=== PATIENT | male | born 1935 | race Caucasian/White ===

== ENCOUNTER 2017-07-06 15:14 | Observation (INO) | payer MEDICARE, OTHER ==
[~2017-07-06] VITALS: Ht 177.8 cm; Wt 75.0 kg
[~2017-07-06 15:14] MED LIST: AMLO5 PO; ASPI325T24 PO; ATEN1TAB73 PO; ATOR20TA PO; CALC750C PO; GABA300C3 PO; IRON27TA PO; OMEG306C PO; PROT40TA PO; REST30CA PO; VITA10002 PO; VITA500015 PO
--- NOTE | 2017-07-06 15:38 | PD ---
HPI Chief Complaint: chest pain Time Seen by Provider: 15:34 Travel History International Travel<30 days: No Contact w/Intl Traveler<30days: No Traveled to known affect area: No History of Present Illness HPI 82-year-old male came to the emergency room with history of sudden onset chest pain that was sharp in nature when he was watching television this afternoon. The pain was on the left side of the chest with no radiation and lasted for a few minutes followed by intense numbness of the upper part of his body in bilateral upper extremity. This scared the patient and he called EMS. By the time EMS arrived patient's pain and numbness was gone. He had taken one full strength aspirin this morning as part of his daily regimen. Patient does have coronary artery disease history. No loss of consciousness. No history of shortness of breath. Pain was sharp in nature and nonradiating. He is awake and answering questions appropriately. Vital signs are stable. Patient had 2 stents put in in 2003. Patient has not seen a bell cleaner in a while. He does not recall his last stress test. [facility] Past Medical History Narrative Medical List of his past medical, surgical, social and family history is reviewed from the nursing note. Hx Anticoagulant Therapy: Yes (asa 325mg) Autoimmune Disease: No Blood Disorders: No Anxiety: No Depression: No Heart Rhythm Problems: No Cancer: Yes (BCC; MELANOMA) Cardiovascular Problems: Yes (DC; HYPERCHOLESTEROLEMIA; HTN) High Cholesterol: Yes Chemotherapy: No Chest Pain: Yes Congestive Heart Failure: Yes Cerebrovascular Accident: Yes (HX CVA) Coronary Artery Disease: Yes Diabetes: No Diminished Hearing: Yes ([place] [facility] AIDS) Diverticulitis: Yes Endocrine: No Gastrointestinal Disorders: Yes GERD: Yes Genitourinary: Yes (CHRONIC KIDNEY DISEASE) Headaches: No Hiatal Hernia: Yes Hypertension: Yes Immune Disorder: No Implanted Vascular Access Dvce: Yes Insomnia: Yes Musculoskeletal: No Neurologic: Yes Psychiatric: No Reproductive: No Respiratory: No Myocardial Infarction: Yes Radiation Therapy: No Seizures: No Past Surgical History Abdominal Surgery: Yes (BOWEL RESECTION; R INGUINAL HERNIA REPAIR) AICD: No Appendectomy: Yes Body Medical Devices: CARDIAC STENTS Cardiac Surgery: Yes (CARDIAC STENTS) Cholecystectomy: Yes Coronary Stent: Yes (2007(X2)) Ear Surgery: No Endocrine Surgery: No Eye Surgery: No Genitourinary Surgery: Yes (GALL STONES) Gynecologic Surgery: No Oral Surgery: No Pacemaker: No Thoracic Surgery: Yes Other Surgery: Yes (L CAROTID ARTHEROTOMY; MULTIPLE SKIN CA EXCISIONS) Social History Alcohol Use: No Tobacco Use: No Substance Use: No Allergies-Medications (Allergen,Severity, Reaction): Coded Allergies: No Known Allergies (Verified , 10/04/15) Comments No known drug allergies Reported Meds & Prescriptions Reported Meds & Active Scripts Active Reported Melatonin 10 Mg-1 Mg Tab 10 Mg PO HS PRN Gabapentin 300 Mg Cap 300 Mg PO TID Atorvastatin (Atorvastatin Calcium) 20 Mg Tab 20 Mg PO HS Amlodipine (Amlodipine Besylate) 5 Mg Tab 5 Mg PO DAILY Ecotrin Regular Strength (Aspirin) 325 Mg Tabdr 325 Mg PO DAILY Protonix (Pantoprazole Sodium) 40 Mg Tab 40 Mg PO DAILY Trazodone (Trazodone HCl) 50 Mg Tab 50 Mg PO HS Narrative Medication List of his home medications reviewed from the nursing note. Review of Systems Except as stated in HPI: all other systems reviewed are Neg Cardiovascular: Positive: Chest Pain or Discomfort Physical Exam Narrative GENERAL: Awake, alert, anxious, elderly SKIN: Focused skin assessment warm/dry. HEAD: Atraumatic. Normocephalic. EYES: Pupils equal and round. No scleral icterus. No injection or drainage. ENT: No nasal bleeding or discharge. Mucous membranes pink and moist. NECK: Trachea midline. No JVD. CARDIOVASCULAR: Regular rate and rhythm. No murmur appreciated. RESPIRATORY: No accessory muscle use. Clear to auscultation. Breath sounds equal bilaterally. GASTROINTESTINAL: Abdomen soft, non-tender, nondistended. Hepatic and splenic margins not palpable. MUSCULOSKELETAL: No obvious deformities. No clubbing. No cyanosis. No edema. NEUROLOGICAL: Awake and alert. No obvious cranial nerve deficits. Motor grossly within normal limits. Normal speech. PSYCHIATRIC: Appropriate mood and affect; insight and judgment normal. Data Data Last Documented VS Vital Signs Date Time Temp Pulse Resp B/P (MAP) Pulse Ox O2 Delivery O2 Flow Rate FiO2 07/06/17 16:34 97 Room Air 07/06/17 16:34 18 07/06/17 15:57 67 07/06/17 15:56 98.2 Orders Orders Electrocardiogram (07/06/17 15:34) Basic Metabolic Panel (Bmp) (07/06/17 15:34) Ckmb (Isoenzyme) Profile (07/06/17 15:34) Complete Blood Count With Diff (07/06/17 15:34) Magnesium (Mg) (07/06/17 15:34) Prothrombin Time / Inr (Pt) (07/06/17 15:34) Act Partial Throm Time (Ptt) (07/06/17 15:34) Troponin I (07/06/17 15:34) Chest, Single Ap (07/06/17 15:34) Ecg Monitoring (07/06/17 15:34) Bilateral Bp Monitoring (07/06/17 15:34) Iv Access Insert/Monitor (07/06/17 15:34) Oximetry (07/06/17 15:34) Oxygen Administration (07/06/17 15:34) Sodium Chloride 0.9% Flush (Ns Flush) (07/06/17 15:45) Ct Brain W/O Iv Contrast(Rout) (07/06/17 ) Admit Order (Ed Use Only) (07/06/17 17:31) Place In Observation (07/06/17 17:32) Activity Bed Rest With Brp (07/06/17 17:32) Vital Signs (Adult) Q4H (07/06/17 17:32) Cardiac Rhythm .As Directed (07/06/17 17:32) Notify Dr: Other .PRN (07/06/17 17:32) Notify Parameters (07/06/17 17:32) Resp Oxygen Nasal Cannula (07/06/17 ) Ckmb (Isoenzyme) Profile (07/06/17 17:32) Ckmb (Isoenzyme) Profile (07/06/17 20:32) Troponin I (07/06/17 17:32) Troponin I (07/06/17 20:32) Electrocardiogram (07/06/17 17:32) Electrocardiogram (07/06/17 20:32) ^ Obtain (07/06/17 17:32) Sodium Chloride 0.9% Flush (Ns Flush) (07/06/17 17:45) Sodium Chloride 0.9% Flush (Ns Flush) (07/06/17 21:00) Acetaminophen (Tylenol) (07/06/17 17:45) Ondansetron Inj (Zofran Inj) (07/06/17 17:45) Nitroglycerin Sl (Nitrostat Sl) (07/06/17 17:45) Project Mgr / Telemetry [id number].[id number] (07/06/17 17:32) Labs Laboratory Tests Test 07/06/17 16:06 White Blood Count 5.0 TH/MM3 Red Blood Count 4.00 MIL/MM3 Hemoglobin 12.6 GM/DL Hematocrit 37.9 % Mean Corpuscular Volume 94.9 FL Mean Corpuscular Hemoglobin 31.5 PG Mean Corpuscular Hemoglobin Concent 33.2 % Red Cell Distribution Width 13.5 % Platelet Count 162 TH/MM3 Mean Platelet Volume 8.9 FL Neutrophils (%) (Auto) 66.0 % Lymphocytes (%) (Auto) 17.6 % Monocytes (%) (Auto) 13.9 % Eosinophils (%) (Auto) 1.8 % Basophils (%) (Auto) 0.7 % Neutrophils # (Auto) 3.3 TH/MM3 Lymphocytes # (Auto) 0.9 TH/MM3 Monocytes # (Auto) 0.7 TH/MM3 Eosinophils # (Auto) 0.1 TH/MM3 Basophils # (Auto) 0.0 TH/MM3 CBC Comment DIFF FINAL Differential Comment Prothrombin Time 10.4 SEC Prothromb Time International Ratio 1.0 RATIO Activated Partial Thromboplast Time 25.4 SEC Blood Urea Nitrogen 14 MG/DL Creatinine 1.25 MG/DL Random Glucose 123 MG/DL Calcium Level 8.3 MG/DL Magnesium Level 1.7 MG/DL Sodium Level 140 MEQ/L Potassium Level 4.5 MEQ/L Chloride Level 104 MEQ/L Carbon Dioxide Level 29.6 MEQ/L Anion Gap 6 MEQ/L Estimat Glomerular Filtration Rate 55 ML/MIN Total Creatine Kinase 60 U/L Troponin I LESS THAN 0.02 NG/ML MDM Medical Decision Making Medical Screen Exam Complete: Yes Emergency Medical Condition: Yes Medical Record Reviewed: Yes Interpretation(s) Twelve-lead EKG was reviewed by me. Normal sinus rhythm, left axis deviation, right bundle branch block. Heart rate of 66 bpm. Differential Diagnosis ACS, non-STEMI, nonspecific chest pain Narrative Course 5:42 PM given his past medical history and his age I would like to admit him to be ruled out for ACS and the chest pain center. I explained this to the patient and he understands. Blood test results of back and within acceptable limits. Head CT and chest x-rays negative. Procedures EKG Prior to Arrival: Yes Diagnosis Primary Impression: Chest pain Qualified Codes: R07.9 - Chest pain, unspecified Admitting Information Admitting Physician Requests: Observation Aneesh Mckinley MD Jul 06, 2017 15:38
[2017-07-06] MEDS ORDERED: SODIUM CHLORIDE 0.9% FLUSH 10 ML FLUSH IVF PRN (15:45)
[2017-07-06 15:56] VITALS: BP 186/75; PULSE 84; RESP 18; TEMP 98.2; O2SAT 96
[2017-07-06 16:34] VITALS: RESP 18; O2SAT 98
--- NOTE | 2017-07-06 16:34 | RADRPT ---
EXAM DATE/TIME: 07/06/2017 15:47 [facility] COMPARISON: No previous studies available for comparison. INDICATIONS : Chest pain and shortness of breath. MEDICAL HISTORY : Hypercholesterolemia. Hypertension CHF, Coronary artery disease, Heart attack. SURGICAL HISTORY : Coronary stents. ENCOUNTER: Initial ACUITY: 1 day PAIN SCORE: 3/10 LOCATION: Bilateral chest FINDINGS: A single view of the chest demonstrates the lungs to be symmetrically aerated without evidence of mas s, infiltrate or effusion. The cardiomediastinal contours are unremarkable. Osseous structures are intact. CONCLUSION: No acute disease. Raul Morgan MD on July 06, 2017 at 16:31 Board Certified Radiologist. This report was verified electronically.
[2017-07-06 16:37] LABS: AUTOMATED NEUTROPHIL # 3.3 TH/MM3 (1.8-7.7); BASOPHIL % 0.7 % (0.0-2.0); EOSINOPHIL # 0.1 TH/MM3 (0-0.4); EOSINOPHIL % 1.8 % (0.0-4.0); HEMATOCRIT 37.9 % (39.0-51.0); HEMOGLOBIN 12.6 GM/DL (13.0-17.0); LYMPH % 17.6 % (9.0-44.0); LYMPHOCYTE # 0.9 TH/MM3 (1.0-4.8); MEAN CELL VOLUME 94.9 FL (80.0-100.0); MEAN CORPUSCULAR HEMOGLOBIN 31.5 PG (27.0-34.0); MEAN CORPUSCULAR HGB CONC 33.2 % (32.0-36.0); MEAN PLATELET VOLUME 8.9 FL (7.0-11.0); MONO % 13.9 % (0.0-8.0); MONOCYTE # 0.7 TH/MM3 (0-0.9); PLATELET COUNT 162 TH/MM3 (150-450); RED CELL DISTRIBUTION WIDTH 13.5 % (11.6-17.2)
[2017-07-06] MEDS ORDERED: ASPI-146 PO (16:40)
[2017-07-06] MEDS ORDERED: GABA300C5 PO (16:40)
[2017-07-06] MEDS ORDERED: PROT40TA PO (16:40)
[2017-07-06] MEDS ORDERED: AMLO5TAB2 PO (16:40)
[2017-07-06] MEDS ORDERED: TRAZ50TA12 PO (16:40)
[2017-07-06] MEDS ORDERED: MELA1TAB18 PO (16:40)
[2017-07-06] MEDS ORDERED: ATOR20TA15 PO (16:40)
[2017-07-06 16:45] LABS: PROTHROMBIN TIME - PATIENT 10.4 SEC (9.8-11.6)
[2017-07-06 17:01] LABS: BICARBONATE 29.6 MEQ/L (21.0-32.0); BLOOD UREA NITROGEN 14 MG/DL (7-18); CALCIUM 8.3 MG/DL (8.5-10.1); CHLORIDE 104 MEQ/L (98-107); CREATININE 1.25 MG/DL (0.60-1.30); GLOMERULAR FILTRATION RATE 55 ML/MIN (>89); GLUCOSE,RANDOM 123 MG/DL (74-106); MAGNESIUM 1.7 MG/DL (1.5-2.5); SODIUM (NA) 140 MEQ/L (136-145); TROPONIN I LESS THAN 0.02 NG/ML (0.02-0.05)
--- NOTE | 2017-07-06 17:21 | RADRPT ---
EXAM DATE/TIME: 07/06/2017 16:01 [facility] COMPARISON: CT BRAIN W/O CONTRAST, March 31, 2011, 16:20. INDICATIONS : Patient complains of cheast pain. RADIATION DOSE: 56.35 CTDIvol (mGy) MEDICAL HISTORY : Cardiovascular disease. Hypertension. SURGICAL HISTORY : None. ENCOUNTER: Initial ACUITY: 1 day PAIN SCALE: 0/10 LOCATION: cranial TECHNIQUE: Multiple contiguous axial images were obtained of the head. Using automated exposure control and adj ustment of the mA and/or kV according to patient size, radiation dose was kept as low as reasonably a chievable to obtain optimal diagnostic quality images. DICOM format image data is available electro nically for review and comparison. FINDINGS: CEREBRUM: Stable small lacunar infarct in the right caudate head. Mild to moderate diffuse to t. The ventricles are normal for degree of atrophy. No evidence of midline shift, mass lesion, hemorrhage or acute in farction. No extra-axial fluid collections are seen. POSTERIOR FOSSA: The cerebellum and brainstem are intact. The 4th ventricle is midline. The cerebellopontine angle i s unremarkable. EXTRACRANIAL: The visualized portion of the orbits is intact. SKULL: The calvaria is intact. No evidence of skull fracture. CONCLUSION: 1. No acute intracranial abnormality or significant interval change. Sam Snow MD on July 06, 2017 at 17:17 Board Certified Radiologist. This report was verified electronically.
[2017-07-06] MEDS ORDERED: ACETAMINOPHEN 500 MG CPLT PO PRN (17:45)
[2017-07-06] MEDS ORDERED: SODIUM CHLORIDE 0.9% FLUSH 10 ML FLUSH IV FLUSH PRN (17:45)
[2017-07-06] MEDS ORDERED: NITROGLYCERIN 0.4 MG SL 25 TABS/BTL SL PRN (17:45)
[2017-07-06] MEDS ORDERED: ONDANSETRON HCL 4 MG/2 ML VIAL IV PUSH PRN (17:45)
[2017-07-06 18:55] VITALS: BP_SYST 137; BP_SYST 142; BP_DIAS 79; BP_DIAS 85; BP_DIAS 86; PULSE 82; PULSE 84; RESP 18; O2SAT 97
[2017-07-06 19:09] VITALS: BP 117/78; PULSE 78; RESP 18; O2SAT 99
[2017-07-06 19:46] LABS: TROPONIN I LESS THAN 0.02 NG/ML (0.02-0.05)
[2017-07-06 20:00] VITALS: O2SAT 96
[2017-07-06] MEDS: SODIUM CHLORIDE 0.9% FLUSH 10 ML FLUSH IV FLUSH SCH (21:00)
[2017-07-06 21:40] VITALS: BP 144/67; PULSE 64; RESP 16; TEMP 97.6; O2SAT 97
[2017-07-07] VITALS (8 sets, daily range): BP systolic 102–182; BP diastolic 57–74; PULSE 61–71; RESP 15–18; TEMP 97.5–98.3; O2SAT 93–97
[2017-07-07 00:44] LABS: TROPONIN I LESS THAN 0.02 NG/ML (0.02-0.05)
[2017-07-07] MEDS ORDERED: ATEN25TA PO (07:46)
--- NOTE | 2017-07-07 08:04 | HHI.HP ---
[facility] Primary Care Physician Chase Castañeda MD Chief Complaint Chest pain History of Present Illness This is a 82-year-old male that presents to ED via ambulance with a complaint of chest discomfort and tingling throughout his body. Patient states that around 1:30 yesterday afternoon he developed 3 quick thumps of left upper chest pain all at once lasting a couple seconds. Almost immediately afterwards he felt a tingling sensation throughout his entire body. The symptoms lasted about 30 minutes. He had no shortness of breath, nausea, or diaphoresis. Patient states he was very worried same began to call friends and family for advice. States he spoke with probably 20 people before getting his son on the phone who advised him to call 911. Denies weakness in extremities, visual changes, difficulty with speech. Denies headache. Denies incontinence or seizure. Patient has history of CAD with an MA 2003 with stenting of the RCA. 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 States at that time he was for medical clearance to have a melanoma excised from the left side of his face. Has not had more recent stress testing the mat. Also has history of bilateral carotid artery stenosis with left having a CEA however states he was told he could do nothing with the right side. Also states he has a murmur but does not know more specific information. Review of Systems General: Patient denies fevers, chills recent, and recent travel HEENT: Patient denies headache, sore throat, difficulty swallowing. Cardiovascular: Has the chest discomfort as mentioned above. Denies sensation of heart beating rapidly or irregularly. No syncope. Denies diaphoresis. Respiratory: Denies shortness of breath or inspirational chest discomfort. Denies coughing wheezing or hemoptysis. GI: Patient denies nausea, vomiting, diarrhea, abdominal pain, bloody stools. Musculoskeletal: Patient denies joint pain or edema. Denies calf pain or edema. Neurovascular: Status entire body felt tingly. Patient denies numbness or weakness in extremities. Denies headache. Denies difficulty with speech. Denies difficulty with ambulation. Denies seizure activity. Endocrine: Denies polyuria and polydipsia. Hematologic: Denies easy bruising. Skin: Denies rash or itching. Past Family Social History Allergies: Coded Allergies: No Known Allergies (Verified , 10/04/15) Past Medical History CAD with an MA in 2003 with stenting of the RCA. At that time he had two- vessel disease but other vessel was medical management. CVA, hypertension, hyperlipidemia, GERD, carotid artery stenosis, murmur. Skin cancers with excisions. Past Surgical History Cardiac catheterization with stenting in 2003. Left carotid arthrectomy. Excisions of multiple skin cancers. Bowel resection, right inguinal hernia repair. Cholecystectomy. Reported Medications Reported Meds & Active Scripts Active Reported Atenolol 25 Mg Tab 25 Mg PO DAILY Melatonin 10 Mg-1 Mg Tab 10 Mg PO HS PRN Gabapentin 300 Mg Cap 300 Mg PO TID Atorvastatin (Atorvastatin Calcium) 20 Mg Tab 20 Mg PO HS Amlodipine (Amlodipine Besylate) 5 Mg Tab 5 Mg PO DAILY Ecotrin Regular Strength (Aspirin) 325 Mg Tabdr 325 Mg PO DAILY Protonix (Pantoprazole Sodium) 40 Mg Tab 40 Mg PO DAILY Trazodone (Trazodone HCl) 50 Mg Tab 50 Mg PO HS Active Ordered Medications Current Medications Medications (Trade) Dose Ordered Sig/Lamonte Route Start Time Stop Time Status Last Admin (NS Flush) 2 ml UNSCH PRN IVF 07/06/17 15:45 (NS Flush) 2 ml UNSCH PRN IV FLUSH 07/06/17 17:45 (NS Flush) 2 ml BID IV FLUSH 07/06/17 21:00 (Tylenol) 500 mg Q4H PRN PO 07/06/17 17:45 (Zofran Inj) 4 mg Q6H PRN IV PUSH 07/06/17 17:45 (Nitrostat Sl) 0.4 mg Q5M PRN SL 07/06/17 17:45 (Norvasc) 5 mg DAILY PO 07/07/17 09:00 UNV (Ecotrin Ec) 325 mg DAILY PO 07/07/17 09:00 UNV (Lipitor) 20 mg HS PO 07/07/17 21:00 UNV (Neurontin) 300 mg TID PO 07/07/17 09:00 UNV (Protonix) 40 mg DAILY PO 07/07/17 09:00 UNV (Desyrel) 50 mg HS PO 07/07/17 21:00 UNV Family History There is family history of CAD. Social History Patient quit smoking 34 years ago but prior to that he smoked about 1 pack of cigarettes a day for 20 years. Physical Exam Vital Signs Vital Signs Date Time Temp Pulse Resp B/P (MAP) Pulse Ox O2 Delivery O2 Flow Rate FiO2 07/07/17 06:51 98.0 67 16 182/74 (110) 96 07/07/17 05:36 67 07/07/17 03:50 97.6 63 15 154/72 (99) 96 07/07/17 00:46 97.5 61 16 140/65 (90) 96 07/06/17 21:40 97.6 64 16 144/67 (92) 97 07/06/17 20:17 07/06/17 20:00 96 07/06/17 19:09 78 18 117/78 (91) 99 Room Air 07/06/17 18:55 84 18 137/85 (102) 97 Room Air 07/06/17 18:55 82 18 137/86 (103) 142/79 (100) 07/06/17 16:34 97 Room Air 07/06/17 16:34 18 98 Room Air 07/06/17 15:57 67 18 99 Room Air 07/06/17 15:56 98.2 84 18 186/75 (112) 96 Room Air Physical Exam GENERAL: This is a well-nourished, well-developed patient, in no apparent distress. Patient speaks in clear complete sentences. Patient is pleasant. HEENT: Bilateral carotid bruits. Head is atraumatic and normocephalic. Neck is supple without lymphadenopathy and trachea is midline. No JVD. CARDIOVASCULAR: Grade 3 systolic murmur right sternal border radiating to the neck. Regular rate and rhythm without gallops or rubs. RESPIRATORY: Clear to auscultation. Breath sounds equal bilaterally. No wheezes , rales, or rhonchi. Chest wall is nontender. No use of accessory muscles. GASTROINTESTINAL: Abdomen is nontender, nondistended. Abdomen soft. No obvious pulsatile mass or bruit. No CVA tenderness. Strong femoral pulses bilaterally. Normal bowel sounds in all quadrants. MUSCULOSKELETAL: Patient is moving upper and lower extremities freely. No calf tenderness or edema, no Homans sign. Strong pulses in upper and lower extremities. NEUROLOGICAL: Patient is alert and oriented. Cranial nerves 2-12 are grossly intact. No focal deficits and speech is clear. SKIN: No rash and turgor is normal. Laboratory Laboratory Tests Test 07/06/17 16:06 1/11/18 19:00 07/06/17 23:55 White Blood Count 5.0 Red Blood Count 4.00 Hemoglobin 12.6 Hematocrit 37.9 Mean Corpuscular Volume 94.9 Mean Corpuscular Hemoglobin 31.5 Mean Corpuscular Hemoglobin Concent 33.2 Red Cell Distribution Width 13.5 Platelet Count 162 Mean Platelet Volume 8.9 Neutrophils (%) (Auto) 66.0 Lymphocytes (%) (Auto) 17.6 Monocytes (%) (Auto) 13.9 Eosinophils (%) (Auto) 1.8 Basophils (%) (Auto) 0.7 Neutrophils # (Auto) 3.3 Lymphocytes # (Auto) 0.9 Monocytes # (Auto) 0.7 Eosinophils # (Auto) 0.1 Basophils # (Auto) 0.0 CBC Comment DIFF FINAL Differential Comment Prothrombin Time 10.4 Prothromb Time International Ratio 1.0 Activated Partial Thromboplast Time 25.4 Blood Urea Nitrogen 14 Creatinine 1.25 Random Glucose 123 Calcium Level 8.3 Magnesium Level 1.7 Sodium Level 140 Potassium Level 4.5 Chloride Level 104 Carbon Dioxide Level 29.6 Anion Gap 6 Estimat Glomerular Filtration Rate 55 Total Creatine Kinase 60 44 48 Troponin I LESS THAN 0.02 LESS THAN 0.02 LESS THAN 0.02 Result Diagram: 07/06/17 1606 07/06/17 1606 Imaging Last 48 hours Impressions Chest X-Ray 07/06/17 1534 Signed Impressions: Service Date/Time: June 15:47 - CONCLUSION: No acute disease. Raul Morgan MD Head CT 07/06/17 0000 Signed Impressions: Service Date/Time: June 16:01 - CONCLUSION: 1. No acute intracranial abnormality or significant interval change. Sam Snow MD Course EKGs are sinus rhythm with right bundle branch block. No significant ST segment depressions or elevations. Caprini VTE Risk Assessment Caprini VTE Risk Assessment: Mod/High Risk (score >= 2) Caprini Risk Assessment Model Point Value = 1 Point Value = 2 Point Value = 3 Point Value = 5 Age 41-60 Minor surgery BMI > 25 kg/m2 Swollen legs Varicose veins or History of unexplained or recurrent spontaneous Oral contraceptives or hormone replacement Sepsis (< 1 month) Serious lung disease, including pneumonia (< 1 month) Abnormal pulmonary function Acute myocardial infarction Congestive heart failure (< 1 month) History of inflammatory bowel disease Medical patient at bed rest Age 61-74 Arthroscopic surgery Major open surgery (> 45 min) Laparoscopic surgery (> 45 min) Malignancy Confined to bed (> 72 hours) Immobilizing plaster cast Central venous access Age >= 75 History of VTE Family history of VTE Factor V Leiden Prothrombin [id number] Lupus anticoagulant Anticardiolipin antibodies Elevated serum homocysteine Heparin-induced thrombocytopenia Other congenital or acquired thrombophilia Stroke (< 1 month) Elective arthroplasty Hip, pelvis, or leg fracture Acute spinal cord injury (< 1 month) Prophylaxis Regimen Total Risk Factor Score Risk Level Prophylaxis Regimen 0-1 Low Early ambulation 2 Moderate Order ONE of the following: *Sequential Compression Device (SCD) *Heparin 5000 units SQ BID 3-4 Higher Order ONE of the following medications: *Heparin 5000 units SQ TID *Enoxaparin/Lovenox 40 mg SQ daily (WT < 150 kg, CrCl > 30 mL/min) *Enoxaparin/Lovenox 30 mg SQ daily (WT < 150 kg, CrCl > 10-29 mL/min) *Enoxaparin/Lovenox 30 mg SQ BID (WT < 150 kg, CrCl > 30 mL/min) AND/OR *Sequential Compression Device (SCD) 5 or more Highest Order ONE of the following medications: *Heparin 5000 units SQ TID (Preferred with Epidurals) *Enoxaparin/Lovenox 40 mg SQ daily (WT < 150 kg, CrCl > 30 mL/min) *Enoxaparin/Lovenox 30 mg SQ daily (WT < 150 kg, CrCl > 10-29 mL/min) *Enoxaparin/Lovenox 30 mg SQ BID (WT < 150 kg, CrCl > 30 mL/min) AND *Sequential Compression Device (SCD) Assessment and Plan Assessment and Plan * Chest pain: Patient's discomfort appears atypical. He was seen by Dr. Gurinder Lackey of cardiology and the chest pain center and he has had serial cardiac enzymes and EKGs for ruling out purposes. We would normally discussed the patient with Dr. Tomas Plaza however the patient states he has not seen him at least 3 years. We will get a Lexiscan and if nonischemic will be discharged home with instructions to follow-up with PCP and to reestablish with his muck miner. * CAD: We'll reevaluate with Lexiscan. * Hypertension: Continue current medication. * Hyperlipidemia: Continue current medication. Patient is stable this time. He is agreeable to this plan. Mayur Saleh Jul 07, 2017 08:04
[2017-07-07] MEDS: PANTOPRAZOLE SOD 40 MG DELAYED RELEASE TAB PO SCH (09:00)
[2017-07-07] MEDS: GABAPENTIN 300 MG CAP PO SCH ×3 (09:00→18:38)
[2017-07-07] MEDS: SODIUM CHLORIDE 0.9% FLUSH 10 ML FLUSH IV FLUSH SCH ×2 (09:01→21:00)
[2017-07-07] MEDS: amLODIPine BESYLATE 5 MG TAB PO SCH (09:01)
[2017-07-07] MEDS: ASPIRIN EC 325 MG TABEC PO SCH (09:01)
[2017-07-07] MEDS ORDERED: REGADENOSON INJ 0.4 MG/5 ML SYR ONE (11:17)
--- NOTE | 2017-07-07 12:41 | RADRPT ---
EXAM DATE/TIME: 07/07/2017 10:53 [facility] COMPARISON: No previous studies available for comparison. INDICATIONS : Substernal chest pain. Angina. Coronary artery disease. DOSE: 25.4 mCi Tc99m Myoview at stress. 8.5 mCi Tc99m Myoview at rest. 0.4 mg Lexiscan STRESS SYMPTOMS: Dyspnea. EJECTION FRACTION: > 70% MEDICAL HISTORY : Congestive hearrt failure. Hypertension. Myocardial infarction. SURGICAL HISTORY : Coronary artery stent. Inguinal hernia repair. Bowel resection. ENCOUNTER: Initial ACUITY: 2 days PAIN SCALE: 6/10 LOCATION: Substernal chest TECHNIQUE: The patient underwent pharmacologic stress with infusion of prescribed dose. Continuous ECG tracing was monitored during stress. Gated SPECT imaging was performed after stress and conventional SPECT i maging was performed at rest. The examination was performed on a SPECT/CT scanner, both attenuation and non-corrected datasets were reviewed. FINDINGS: DISTRIBUTION: The maximum perfused segment at stress is in the septal wall. PERFUSION STUDY: There is a focus of moderately diminished relative perfusion in the posterobasal wall with moderate r edistribution identified. GATED STUDY: There is intact wall motion and thickening without hypokinetic or dyskinetic segments. CONCLUSION: Small focus of moderate severity ischemia in the posterobasal wall potentially indicative of branch v essel disease. RISK CATEGORY: Intermediate (1-3% Annual Mortality Rate) Too Miller MD on July 07, 2017 at 12:24 Board Certified Radiologist. This report was verified electronically.
[2017-07-07] MEDS ORDERED: SODIUM CHLOR 0.9% 1000 ML INJ 1,000 ML IV SCH (13:06)
[2017-07-07] MEDS: ATENOLOL 25 MG TAB PO SCH (13:19)
--- NOTE | 2017-07-07 15:31 | MB ---
cc: SELMA WELLS M.D. DATE OF CONSULTATION 07/07/2017 REASON FOR CONSULTATION Evaluation of abnormal stress test and atypical symptoms. HISTORY OF PRESENT ILLNESS Britton Carmichael is an 82-year-old man with known coronary artery disease. He had an acute inferior NC in 2003. I stented his proximal and mid right coronary artery using a 4.0 x 13 heparin-coated stent in the proximal right coronary artery and a 3.5 x 18 mm stent in the mid right coronary artery. At that time he had 60% distal LAD disease and 90% right posterior descending artery disease. These have been managed medically. He is not that active. He goes once a week to walk through [employer]. He uses a cane to walk around. He has had no typical angina. He denies any chest pressure or chest tightness. Today at rest he developed a feeling like a three-pronged instrument thumped his chest for about two seconds then he had tingling from his head to toes lasting about 30 minutes. He thought he may have been excited. He has had no recurrence of those symptoms. He has had no typical chest pain. PAST MEDICAL HISTORY 1. Known coronary artery disease. 2. Hiatal hernia. 3. Left carotid endarterectomy. 4. Hypertension. 5. [id number] smoking history. 6. Previous CVA. 7. Melanoma removal. 8. Known carotid bruits. PAST SURGICAL HISTORY 1. Cardiac stent. 2. Cholecystectomy. 3. Ventral hernia repair with mesh. 4. Right inguinal hernia repair. SOCIAL HISTORY He has a [id number] smoking history. He lives alone currently. His . He has a son who lives in [place]. FAMILY HISTORY Noncontributory. REVIEW OF SYSTEMS A review of systems is otherwise negative. PHYSICAL EXAMINATION GENERAL: An elderly well-developed, well-nourished white male in no acute distress. VITAL SIGNS: Charted. HEENT: Unremarkable. NECK: No JVD. CHEST: Clear to auscultation. CARDIAC: S1, S2, regular rate and rhythm. There is a systolic murmur, at least grade 2/6, early to mid peaking, suggestive of mild aortic stenosis. ABDOMEN: Soft, nontender. EXTREMITIES: No clubbing, cyanosis or edema. Pulses are intact. EKG EKG shows sinus rhythm with right bundle branch block. LABORATORY Troponins are negative. Creatinine is 1.25. Hematocrit 37.9. IMAGING Chest x-ray showed no acute disease. Head CT without contrast showed no acute abnormality. Nuclear stress test shows a small focus of moderate severity in the posterobasal wall. IMPRESSION This an 82-year-old man who is quite sedentary and frail, who has had a previous NC and stenting 13 years ago. He now comes in with chest discomfort that does not sound cardiac in origin, is a feeling lasting 2 seconds followed by a tingling feeling from his head to his toes. The enzymes are negative. The nuclear stress test is positive. He does have a known stenosis in his PDA branch which could account for the findings on the nuclear. 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 RECOMMENDATIONS Discussed with the patient the option of doing a cardiac catheterization to get to the bottom of this. He would prefer a more conservative approach. I think this would be appropriate. I am going to add Imdur 30 mg. Will get a stat. echo to check out his aortic valve and see if there is significant aortic stenosis. We are going to hold off on doing a cardiac cath today. Will probably keep him overnight and if he remains stable let him go home tomorrow. MD USHA Monzon/BRENDON /2:21 PM /2:58 PM
--- NOTE | 2017-07-07 15:48 | EKG ---
Date Performed: 07/06/2017 Time Performed: 19:06:03 PTAGE: 82 years EKG: Sinus rhythm WITH FIRST DEGREE AV BLOCK RIGHT BUNDLE BRANCH BLOCK ABNORMAL ECG PREVIOUS TRACING : 07/06/2017 15.56 Since previous tracing, no significant change noted DOCTOR: Gurinder Lackey Interpretating Date/Time 07/07/2017 15:47:24
--- NOTE | 2017-07-07 15:49 | EKG ---
Date Performed: 07/06/2017 Time Performed: 15:56:09 PTAGE: 82 years EKG: Sinus rhythm WITH FIRST DEGREE AV BLOCK RIGHT BUNDLE BRANCH BLOCK ABNORMAL ECG INTERPRETATION BASED ON A DEFAULT AGE OF 40 YEARS PREVIOUS TRACING : 10/04/2015 07.30 Since previous tracing, no significant change noted DOCTOR: Gurinder Lackey Interpretating Date/Time 07/07/2017 15:48:51
--- NOTE | 2017-07-07 16:00 | EKG ---
Date Performed: 07/06/2017 Time Performed: 21:47:47 PTAGE: 82 years EKG: Sinus rhythm WITH FIRST DEGREE AV BLOCK RIGHT BUNDLE BRANCH BLOCK ABNORMAL ECG PREVIOUS TRACING : 07/06/2017 19.06 Since previous tracing, no significant change noted DOCTOR: Gurinder Lackey Interpretating Date/Time 07/07/2017 15:59:31
--- NOTE | 2017-07-07 16:02 | TR ---
Date Performed: 07/07/2017 Time Performed: 11:14:43 DOCTOR: Gurinder Lackey DRUG LIST: CLINICAL HISTORY: REASON FOR TEST: Angina REASON FOR ENDING: OBSERVATION: CONCLUSION: Lexiscan stress test was performed under standard four minute protocol. Radionuclid e was injected one minute prior to ending the test. No electrocardiographic abormalities were present to suggest ischemia. Nuclear imaging and interpretation are pending. COMMENTS:
[2017-07-07] MEDS: ISOSORBIDE MONONITRATE 30 MG TAB PO SCH (16:03)
--- NOTE | 2017-07-07 16:28 | ECHRPT ---
Indication: CONCLUSIONS Normal left ventricular size. Wall thickness is normal. The left ventricular systolic function is normal with an estimated ejection fraction in the range of 55-60%. Suspect scarring of the proximal inferior wall. Mitral annular calcification is present. Trace mitral valve regurgitation. Mild to moderate aortic valve stenosis. Mild aortic valve regurgitation. Mild thickening of the aortic valve leaflets. Aortic valve area is 0.96 cm. Aortic valve mean gradient is 21 mmHg. There is at least mild aortic stenosis. The pulmonary valve is not well visualized. BP: / HR: Rhythm: MEASUREMENTS (Male / Female) Normal Values Technical Quality:Fair 2D ECHO LV Diastolic Diameter PLAX 4.6 cm 4.2 - 5.9 / 3.9 - 5.3 cm LV Systolic Diameter PLAX 3.5 cm IVS Diastolic Thickness 1.0 cm 0.6 - 1.0 / 0.6 - 0.9 cm LVPW Diastolic Thickness 0.8 cm 0.6 - 1.0 / 0.6 - 0.9 cm LV Relative Wall Thickness 0.4 RV Internal Dim ED PLAX 2.3 cm LVOT Diameter 2.0 cm LA Systolic Diameter LX 4.0 cm 3.0 - 4.0 / 2.7 - 3.8 cm DOPPLER AV Peak Velocity 312.0 cm/s AV Peak Gradient 38.9 mmHg AV Mean Gradient 21.0 mmHg AV Velocity Time Integral 84.8 cm AI Peak Velocity 364.0 cm/s AI Peak Gradient 53.0 mmHg AI Pressure Half Time 623.0 ms LVOT Peak Velocity 103.5 cm/s LVOT Peak Gradient 4.3 mmHg LVOT Velocity Time Integral 26.0 cm AV Area Cont Eq vti 1.0 cm AV Area Cont Eq pk 1.0 cm MR Peak Velocity 429.0 cm/s MR Peak Gradient 73.6 mmHg Mitral E Point Velocity 54.3 cm/s Mitral A Point Velocity 113.0 cm/s Mitral E to A Ratio 0.5 TR Peak Velocity 175.0 cm/s TR Peak Gradient 12.3 mmHg FINDINGS LEFT VENTRICLE Normal left ventricular size. Wall thickness is normal. The left ventricular systolic function is normal with an estimated ejection fraction in the range of 55-60%. Suspect scarring of the proximal inferior wall. RIGHT VENTRICLE Normal right ventricular size and systolic function. LEFT ATRIUM The left atrial size is normal. RIGHT ATRIUM The right atrial size is normal. ATRIAL SEPTUM Normal atrial septal thickness without atrial level shunting by limited color doppler interrogation. AORTA The aortic root and proximal ascending aorta are normal in size on limited imaging. MITRAL VALVE Mitral annular calcification is present. Trace mitral valve regurgitation. AORTIC VALVE Mild to moderate aortic valve stenosis. Mild aortic valve regurgitation. Mild thickening of the aortic valve leaflets. Aortic valve area is 0.96 cm. Aortic valve mean gradient is 21 mmHg. There is at least mild aortic stenosis. TRICUSPID VALVE Structurally normal tricuspid valve. No tricuspid valve stenosis or regurgitation. PULMONARY VALVE The pulmonary valve is not well visualized. VESSELS The inferior vena cava is normal in size. PERICARDIUM No pericardial effusion. Tomas Plaza MD (Electronically Signed) Final Date:07 July 2017 16:27
[2017-07-07] MEDS ORDERED: ATORVASTATIN 20 MG TAB PO SCH (21:00)
[2017-07-07] MEDS ORDERED: traZODone HCL 50 MG TAB PO SCH (21:00)
[2017-07-08 01:27] VITALS: BP 112/59; PULSE 65; RESP 17; TEMP 98; O2SAT 94
[2017-07-08 03:46] VITALS: BP 102/53; PULSE 59; RESP 18; TEMP 98.3; O2SAT 95
[2017-07-08 07:09] VITALS: PULSE 58
[2017-07-08] MEDS ORDERED: ISOS30TA3 PO (07:55)
--- NOTE | 2017-07-08 07:55 | HHI.DCPOC ---
Discharge Care Plan Diagnosis: (1) Chest pain (2) CAD (coronary artery disease) Goals to Promote Your Health * To prevent worsening of your condition and complications * To maintain your health at the optimal level Directions to Meet Your Goals Take your medications as prescribed Follow your dietary instruction Follow activity as directed Keep your appointments as scheduled Take your immunizations and boosters as scheduled If your symptoms worsen call your PCP, if no PCP go to Urgent Care Center or Emergency Room Smoking is Dangerous to Your Health. Avoid second hand smoke Call the 24-hour hour crisis hotline for domestic abuse at Anais Ayala PA-C Jul 08, 2017 07:55
[2017-07-08 08:19] VITALS: BP 136/63; PULSE 63
[2017-07-08] MEDS ORDERED: AMLO5TAB2 PO (08:19)
[2017-07-08] MEDS: ISOSORBIDE MONONITRATE 30 MG TAB PO SCH (08:20)
--- NOTE | 2017-07-08 08:25 | HHI.PR ---
Subjective Remarks in no acute distress. denies chest pain or sob. no new complaints. wants to go home today. Objective Vitals Vital Signs Date Time Temp Pulse Resp B/P (MAP) Pulse Ox O2 Delivery O2 Flow Rate FiO2 07/08/17 03:46 98.3 59 18 102/53 (69) 95 07/08/17 01:27 98.0 65 17 112/59 (76) 94 07/07/17 21:41 97.8 63 17 102/57 (72) 93 07/07/17 18:00 62 07/07/17 16:30 97.6 61 18 128/62 (84) 94 07/07/17 13:25 98.3 71 16 140/66 (90) 97 I/O 07/07/17 07/07/17 07/07/17 07/08/17 07/08/17 07/08/17 07:00 15:00 23:00 07:00 15:00 23:00 Intake Total 245 ml Output Total 600 ml Balance -355 ml Intake Oral 245 ml Output Urine Total 600 ml # Voids 5 Result Diagram: 07/06/17 1606 07/06/17 1606 Imaging Last Impressions Myocardial Perfusion Scan Nuc Med 07/07/17 0000 Signed Impressions: Service Date/Time: Friday, July 07, 2017 10:53 - CONCLUSION: Small focus of moderate severity ischemia in the posterobasal wall potentially indicative of branch vessel disease. RISK CATEGORY: Intermediate (1-3%% Annual Mortality Rate) Too Miller MD Chest X-Ray 07/06/17 1534 Signed Impressions: Service Date/Time: June 15:47 - CONCLUSION: No acute disease. Raul Morgan MD Head CT 07/06/17 0000 Signed Impressions: Service Date/Time: June 16:01 - CONCLUSION: 1. No acute intracranial abnormality or significant interval change. Sam Snow MD Objective Remarks GENERAL: This is a well-nourished, well-developed patient, in no apparent distress. CARDIOVASCULAR: Regular rate and regular rhythm without murmurs, gallops, or rubs. RESPIRATORY: Clear to auscultation. Breath sounds equal bilaterally. No wheezes , rales, or rhonchi. GASTROINTESTINAL: Abdomen soft, non-tender, nondistended. Normal, active bowel sounds MUSCULOSKELETAL: Extremities without clubbing, cyanosis, or edema. NEURO: Alert & Oriented x4 to person, place, time, situation. Moves all ext x4 Medications and IVs Inpatient Medications Acetaminophen (Tylenol) 500 mg Q4H PRN PO HEADACHE; Start 07/06/17 at 17:45 Amlodipine Besylate (Norvasc) 5 mg DAILY PO Last administered on 07/07/17at 09: 01; Start 07/07/17 at 09:00 Aspirin (Ecotrin Ec) 325 mg DAILY PO Last administered on 07/07/17at 09:01; Start 07/07/17 at 09:00 Atenolol (Tenormin) 25 mg DAILY PO Last administered on 07/07/17at 13:19; Start 07/07/17 at 09:00 Atorvastatin Calcium (Lipitor) 20 mg HS PO Last administered on 07/08/17at 03:17 ; Start 07/07/17 at 21:00 Gabapentin (Neurontin) 300 mg TID PO Last administered on 07/07/17at 18:38; Start 07/07/17 at 09:00 Isosorbide Mononitrate (Imdur) 30 mg DAILY@07 PO Last administered on at 16:03; Start 07/07/17 at 15:00 Nitroglycerin (Nitrostat Sl) 0.4 mg Q5M PRN SL CHEST PAIN; Start 07/06/17 at 17 :45 Ondansetron HCl (Zofran Inj) 4 mg Q6H PRN IV PUSH NAUSEA; Start 07/06/17 at 17: 45 Pantoprazole Sodium (Protonix) 40 mg DAILY PO Last administered on 07/07/17at 09 :00; Start 07/07/17 at 09:00 Sodium Chloride 1,000 ml @ 90 mls/hr Q11H7M IV Last administered on 07/07/17 16:03; Start 07/07/17 at 13:06; Stop 07/08/17 at 00:12; Status DC Sodium Chloride (NS Flush) 2 ml BID IV FLUSH Last administered on 07/07/17at 21: 00; Start 07/06/17 at 21:00 Trazodone HCl (Desyrel) 50 mg HS PO Last administered on 1/13/18at 03:16; Start 07/07/17 at 21:00 A/P Assessment and Plan A/P - chest pain with abnormal stress test cardiology consult appreciated. the patient decided to proceed with the medical treatment. continue aspirin, statin and atenolol- imdur was added; f/u with as outpatient. -hypertension; resume home meds upon discharge. Discharge Planning dc home today. f/u; pcp and cardiology. Asmita Braun MD Jul 08, 2017 08:25
--- NOTE | 2017-07-08 08:56 | PD.CARD.PN ---
Subjective Subjective Remarks no chest pain, feels OK Objective Medications Current Medications Medications (Trade) Dose Ordered Sig/Lamonte Route Start Time Stop Time Status Last Admin (NS Flush) 2 ml UNSCH PRN IV FLUSH 07/06/17 17:45 (NS Flush) 2 ml BID IV FLUSH 07/06/17 21:00 07/07/17 21:00 (Tylenol) 500 mg Q4H PRN PO 07/06/17 17:45 (Zofran Inj) 4 mg Q6H PRN IV PUSH 07/06/17 17:45 (Nitrostat Sl) 0.4 mg Q5M PRN SL 07/06/17 17:45 (Norvasc) 5 mg DAILY PO 07/07/17 09:00 07/07/17 09:01 (Ecotrin Ec) 325 mg DAILY PO 07/07/17 09:00 07/07/17 09:01 (Lipitor) 20 mg HS PO 07/07/17 21:00 07/08/17 03:17 (Neurontin) 300 mg TID PO 07/07/17 09:00 07/07/17 18:38 (Protonix) 40 mg DAILY PO 07/07/17 09:00 07/07/17 09:00 (Desyrel) 50 mg HS PO 07/07/17 21:00 07/08/17 03:16 (Tenormin) 25 mg DAILY PO 07/07/17 09:00 07/07/17 13:19 (Imdur) 30 mg DAILY@07 PO 07/07/17 15:00 07/08/17 08:20 Vital Signs / I&O Vital Signs Date Time Temp Pulse Resp B/P (MAP) Pulse Ox O2 Delivery O2 Flow Rate FiO2 07/08/17 08:19 63 136/63 (87) 07/08/17 03:46 98.3 59 18 102/53 (69) 95 07/08/17 01:27 98.0 65 17 112/59 (76) 94 07/07/17 21:41 97.8 63 17 102/57 (72) 93 07/07/17 18:00 62 07/07/17 16:30 97.6 61 18 128/62 (84) 94 07/07/17 13:25 98.3 71 16 140/66 (90) 97 I/O 07/07/17 07/07/17 07/07/17 07/08/17 07/08/17 07/08/17 07:00 15:00 23:00 07:00 15:00 23:00 Intake Total 245 ml Output Total 600 ml Balance -355 ml Intake Oral 245 ml Output Urine Total 600 ml # Voids 5 Physical Exam Alert Chest clear CV [id number] with mild murmur Abd sodt No edema Assessment and Plan Problem List: (1) Aortic stenosis, mild ICD Codes: I35.0 - Nonrheumatic aortic (valve) stenosis (2) CAD (coronary artery disease) ICD Codes: I25.10 - Atherosclerotic heart disease of tribe coronary artery without angina pectoris Status: Acute (3) Chest pain ICD Codes: R07.9 - Chest pain, unspecified Status: Acute Plan: atypical/resolved. Medical management Assessment and Plan OK to [place] home Problem Qualifiers (1) Chest pain: Qualified Codes: R07.9 - Chest pain, unspecified Tomas Plaza MD Jul 08, 2017 08:56
[2017-07-08] MEDS: SODIUM CHLORIDE 0.9% FLUSH 10 ML FLUSH IV FLUSH SCH (09:02)
[2017-07-08] MEDS: ASPIRIN EC 325 MG TABEC PO SCH (09:02)
[2017-07-08] MEDS: GABAPENTIN 300 MG CAP PO SCH ×2 (09:02→12:48)
[2017-07-08] MEDS: PANTOPRAZOLE SOD 40 MG DELAYED RELEASE TAB PO SCH (09:03)
[2017-07-08] MEDS: amLODIPine BESYLATE 5 MG TAB PO SCH (09:03)
[2017-07-08] MEDS: ATENOLOL 25 MG TAB PO SCH (09:03)
[2017-07-08 09:32] VITALS: BP 99/51; PULSE 65; RESP 18; TEMP 98.2; O2SAT 95
[2017-07-08 11:31] VITALS: BP 111/56; PULSE 59; RESP 22; TEMP 98.4; O2SAT 96
== END 2017-07-08 17:14 | disposition home or self-care (01) ==
LOC: NEPE 15:14 → NEDA 17:32 → NEPFCDU 20:34
PROVIDERS: ADMIT Hospitalist; ATTEND Hospitalist
DX: R07.9 Chest pain, unspecified (principal); I25.10 Atherosclerotic heart disease of native coronary artery without angina pectoris; I50.9 Heart failure, unspecified; N18.9 Chronic kidney disease, unspecified; I13.0 Hypertensive heart and chronic kidney disease with heart failure and stage 1 through stage 4 chronic kidney disease, or unspecified chronic kidney disease; E78.5 Hyperlipidemia, unspecified; R94.39 Abnormal result of other cardiovascular function study; I25.2 Old myocardial infarction; Z95.5 Presence of coronary angioplasty implant and graft; K44.9 Diaphragmatic hernia without obstruction or gangrene; Z86.73 Personal history of transient ischemic attack (TIA), and cerebral infarction without residual deficits; I45.10 Unspecified right bundle-branch block; R20.0 Anesthesia of skin; Z79.82 Long term (current) use of aspirin; K57.92 Diverticulitis of intestine, part unspecified, without perforation or abscess without bleeding; K21.9 Gastro-esophageal reflux disease without esophagitis; G47.00 Insomnia, unspecified; Z79.899 Other long term (current) drug therapy; I65.23 Occlusion and stenosis of bilateral carotid arteries; Z87.891 Personal history of nicotine dependence; I44.0 Atrioventricular block, first degree; I35.0 Nonrheumatic aortic (valve) stenosis
CPT/HCPCS: 70450; 71045; 78452; 80048; 82550; 83735; 84484; 85025; 85610; 85730; 93005; 93017; 93306; 96360; 99285; A9502; G0378; J2785; J7030